=== PATIENT | female | born 1950 | race Caucasian/White ===

== ENCOUNTER → 2017-03-06 | Outpatient (CLI) | payer OTHER ==
[~2017-03-06] MED LIST: AMR2 PO; ASPCH81X PO; ATEN-171 PO; ATOR10TA82 PO; BUPRTAB51 PO; CINN1CAP2 PO; GABA-113 PO; GLC500 PO; LSN5 PO
--- NOTE | 2017-03-07 13:04 | MAMMOGRAPHY REPORT ---
BILATERAL DIGITAL SCREENING MAMMOGRAM WITH CAD: 03/06/2017 CLINICAL HISTORY: Routine screening. Patient has no complaints. TECHNIQUE: Current study was also evaluated with a Computer Aided Detection (CAD) system. Bilatera l CC and MLO views were obtained. COMPARISON: Comparison is made to exams dated: 02/22/2016 mammogram, 02/16/2015 mammogram, 02/10/2014 ma mmogram, 01/28/2013 mammogram, 01/16/2012 mammogram, and 01/10/2011 mammogram - [facility]. BREAST COMPOSITION: There are scattered areas of fibroglandular density in both breasts. FINDINGS: No suspicious masses, calcifications, or areas of architectural distortion are noted in e ither breast. There has been no significant interval change compared to prior exams. IMPRESSION: ACR BI-RADS CATEGORY 1: NEGATIVE There is no mammographic evidence of malignancy. A 1 year screening mammogram is recommended. The p atient will receive written notification of the results. Approximately 10% of breast cancers are not detected with mammography. A negative mammographic repor t should not delay biopsy if a clinically suggestive mass is present. Maria Antonia Martinez M.D. ah/:03/07/2017 07:40:51 Ag Service Manager: Yuko HARTMANN(R)(M), [facility] letter sent: Normal 1/2 BI-RADS Code: ACR BI-RADS Category 1: Negative
== END | disposition home or self-care (01) ==
LOC: C.MAMM 17:15
PROVIDERS: ATTEND Obstetrics & Gynecology
DX: Z12.31 Encounter for screening mammogram for malignant neoplasm of breast (principal)

== ENCOUNTER 2017-04-26 19:23 | Emergency (ER) | payer OTHER ==
[~2017-04-26] VITALS: Ht 157.5 cm; Wt 72.7 kg
[2017-04-26 19:26] VITALS: BP 141/82; PULSE 99; TEMP 36.7; O2SAT 95; Ht 157.5 cm; Wt 72.7 kg
[2017-04-26] MEDS ORDERED: ACETAMINOPHEN 500 MG TAB PO STA (20:03)
--- NOTE | 2017-04-26 20:18 | EMERGENCY ROOM VISIT NOTE ---
ED Visit Note First contact with patient: 19:46 CHIEF COMPLAINT: Left hip pain HISTORY OF PRESENT ILLNESS: This 66-year-old female patient presents to the emergency department complaining of left groin and hip pain which began this morning spontaneously. Patient states pain has increased as the day has gone on. She states pain begins in the left groin and radiates down her left leg over the anterior thigh. Patient states at noon, she took one of her 's Percocet, and states this did not help the discomfort. She states throughout the day she has taken 2 Aleve without relief as well. Patient states her last dose of Aleve was at 4:00 this afternoon. Patient states she is able to walk, however walking increases her discomfort patient states pain is sharp/constant and rates it at 10/10. She states lying on her right side is the only position which helped relieve the pain minimally. Patient denies paresthesias, weakness , urinary incontinence, abdominal pain, back pain, pain radiating down the posterior thigh, recent injury or illness. Patient denies redness, swelling, warmth. REVIEW OF SYSTEMS: A 10 system review of systems was performed with positives and pertinent negatives listed in the history of present illness. All other systems were reviewed and are negative. ALLERGIES: None MEDICATIONS: Atenolol/chlorthalidone, atorvastatin, Wellbutrin, cinnamon, glimepiride, lisinopril, metformin, aspirin, gabapentin, sertraline PMH: Hypertension, hyperlipidemia, depression, diabetes mellitus type 2, diabetic neuropathy SOCIAL HISTORY: Patient lives locally with her family. She denies alcohol, drug , tobacco use. PHYSICAL EXAM: VITALS: Vitals are noted on the nurse's note and reviewed by myself. Vital signs stable. GENERAL: 66-year-old female, in no acute distress, nondiaphoretic, well- developed well-nourished. SKIN: The skin was without rashes, erythema, edema, or bruising. There is no tenting of the skin. Capillary reflex less than 2 seconds. NECK: Supple without nuchal rigidity. No lymphadenopathy. No thyromegaly. Cervical spine is nontender. No JVD. MUSCULOSKELETAL: Hip tenderness on palpation. Range of motion is slightly limited due to pain. No muscle atrophy, erythema, or edema noted. Full range of motion without joint tenderness in all extremities except as noted. Pt. walks with a limp due to hip pain. Strength 5/5 throughout. NEUROVASCULAR: Patient was alert and oriented to person place and time. Normal sensation to light and sharp touch. Deep tendon reflexes 2+ throughout. No focal neurological deficits. Pedal pulses 2+ bilaterally. PRISCILA test [] EMERGENCY DEPARTMENT COURSE: Pt. was seen and evaluated as outlined above. Pt. was given 1000mg Tylenol for pain and noted moderate relief. Xray of the left hip performed, reviewed by myself, Dr. Parker, and radiology, and indicated: DISCUSSION: No fractures or dislocations are visualized. Joint space appears well-preserved for age. There are no erosive or destructive changes. IMPRESSION: 1. No acute fractures 2. No erosive or destructive changes identified I discussed the case with Dr. Parker who evaluated the patient independently. Discussion regarding xray results with patient. Advised patient to manage pain through the weekend and follow-up with her PCP or orthopedics next week. Pt. and family are in agreement with this plan. Pt. was discharged home in good condition. DIAGNOSIS: Left hip pain DIFFERENTIAL DIAGNOSIS: femoral head fracture, pelvic fracture, hip contusion, hip sprain, avascular necrosis, sciatica, malignancy DISCHARGE INSTRUCTIONS & TREATMENT: Rest, stay off of the leg as much as possible until pain subsides. For pain control, you can use the following mysb-egj-awpzenv medicines (if >12 yo): - Extra strength (500mg/tab) Tylenol (acetaminophen) 2 tabs every 4-6 hours as needed. Do not exceed 8 tablets in a 24 hour period. Avoid taking more than 4 grams (4000 mg) of Tylenol per day. This includes any other sources of acetaminophen you may take on a regular basis. - Regular strength (200 mg/tab) Advil (ibuprofen) 2-3 tabs every 4-6 hours as needed. Do not exceed a dose of 3200 mg per day. You may alternate these two medications every 3 hours. Follow-up with your primary care provider or orthopedic surgeon in 2-3 days if no improvement in symptoms. Return to the Emergency Department for increasing pain, any redness or swelling , inability to ambulate, loss of bowel/bladder dysfunction, weakness, numbness or tingling in the extremities, or if you experience discoloration of the leg. Problem List Medical Problems: (1) HTN (hypertension) Status: Chronic Current/Historical Medications Scheduled Aspirin (Aspirin Chewable), 81 MG PO QAM Atenolol/Chlorthalidone (Tenoretic 50 Mg/25 Mg), 1 TAB PO QPM Atorvastatin (Lipitor), 10 MG PO QPM Bupropion (Wellbutrin-Xl), 300 MG PO QPM Cinnamon (Cinnamon), 500 MG PO QAM Gabapentin (Neurontin), 300 MG PO QPM Glimepiride (Glimepiride), 2 MG PO QAM Lisinopril (Lisinopril), 5 MG PO QAM Metformin HCl (Metformin HCl), 500 MG PO BID Allergies Coded Allergies: No Known Allergies (Unverified , 04/02/16) Vital Signs Date Time Temp Pulse Resp B/P (MAP) Pulse Ox O2 Delivery O2 Flow Rate FiO2 04/26/17 19:26 36.7 99 18 141/82 95 Room Air Medications Administered Medications (Trade) Dose Ordered Sig/Albino Route Start Time Stop Time Status Last Admin Dose Admin Acetaminophen (Tylenol Tab) 1,000 mg NOW STAT PO 04/26/17 20:03 04/26/17 20:04 DC 04/26/17 20:33 1,000 MG Departure Information Impression Primary Impression: Left hip pain Dispostion Home / Self-Care Condition GOOD Referrals Cami Mukherjee (PCP) Eugenio Mckenna M.D. Patient Instructions [facility] Additional Instructions Rest, stay off of the leg as much as possible until pain subsides. For pain control, you can use the following otac-ksg-cgtdzri medicines (if >12 yo): - Extra strength (500mg/tab) Tylenol (acetaminophen) 2 tabs every 4-6 hours as needed. Do not exceed 8 tablets in a 24 hour period. Avoid taking more than 4 grams (4000 mg) of Tylenol per day. This includes any other sources of acetaminophen you may take on a regular basis. - Regular strength (200 mg/tab) Advil (ibuprofen) 2-3 tabs every 4-6 hours as needed. Do not exceed a dose of 3200 mg per day. You may alternate these two medications every 3 hours. Follow-up with your primary care provider or orthopedic surgeon in 2-3 days if no improvement in symptoms. Return to the Emergency Department for increasing pain, any redness or swelling , inability to ambulate, loss of bowel/bladder dysfunction, weakness, numbness or tingling in the extremities, or if you experience discoloration of the leg.
--- NOTE | 2017-04-26 20:31 | DIAGNOSTIC IMAGING REPORT ---
LEFT HIP UNILATERAL 2 VIEWS CLINICAL HISTORY: Left hip pain COMPARISON: None. DISCUSSION: No fractures or dislocations are visualized. Joint space appears well-preserved for age. There are no erosive or destructive changes. IMPRESSION: 1. No acute fractures 2. No erosive or destructive changes identified Electronically signed by: Radu Estrada M.D. 04/26/2017 8:29 PM Dictated Date/Time: 04/26/2017 8:29 PM
--- NOTE | 2017-04-26 20:51 | EMERGENCY ROOM VISIT NOTE ---
ED Visit Note First contact with patient: 19:46 Staff note: I have reviewed the Patients chart and have discussed this case with my PA. I generally agree with the ED note and findings.
== END 2017-04-26 21:11 | disposition home or self-care (01) ==
LOC: C.EDB 19:24 → C.EDD 21:11
DX: M25.552 Pain in left hip (principal); I10 Essential (primary) hypertension; E78.5 Hyperlipidemia, unspecified; E11.40 Type 2 diabetes mellitus with diabetic neuropathy, unspecified; F32.9 Major depressive disorder, single episode, unspecified; Z79.82 Long term (current) use of aspirin; Z79.84 Long term (current) use of oral hypoglycemic drugs; Z79.899 Other long term (current) drug therapy

== ENCOUNTER → 2018-02-10 | Day surgery (SDC) | payer OTHER ==
[2018-01-16 10:16] VITALS: Ht 158.8 cm; Wt 72.7 kg
[~2018-02-10] VITALS: Ht 158.8 cm; Wt 72.7 kg
[~2018-02-10] MED LIST changes: +500ML BSS 0.3ML EPI 1:1000PF IRRIG ONE; +ACETAMINOPHEN 325 MG TAB PO PRN; +AMVISC PLUS 0.8ML SYRINGE INT OCU ONE; -ATOR10TA82 PO; +BRIMONIDINE TART 0.2% OP SOLN PER DROP CHARGE ONE; +BSS FLUSH ONE; +COEN100C11 PO; +ENDOCOAT 0.85ML SYRINGE INT OCU ONE; +EpINEphrine INJ 1MG/ML AMP 1 MG/ML AMP ONE; +LACTATED RINGER'S 1000ML 500 ML IV SCH; +LIDOCAINE 4% OP SOLN DROP CHARGE ONE; +LIDOCAINE 4% OP SOLN DROP CHARGE OPL SCH; +LIDOCAINE HCL 1% MPF 2 ML VIAL ONE; +LOVA10TA2 PO; +MIDAZOLAM HCL 1 MG/ML 2ML VIAL ONE; +MIX: 3ML BSS AND 1ML EPI(PF) TOP ONE; +MOXIFLOXACIN OPH SOLN PER DROP CHARGE ONE; +MULT-506 PO; +POVIDONE-IODINE OP SOLN 30 ML BTL ONE; +PROPARACAINE 0.5% OP SOLN PER DROP CHARGE OPL SCH; +TOBRAMYCIN/DEXAMETHASONE OPH OINT PER APPLN CHARGE ONE
[2018-02-10] MEDS: PHENYLEPHRINE HCL 2.5% OP SOLN PER DROP CHARGE OPL SCH ×2 (07:17→07:23)
[2018-02-10] MEDS: TROPICAMIDE 1% OP SOLN PER DROP CHARGE OPL SCH ×2 (07:18→07:24)
[2018-02-10] MEDS: CYCLOPENTOLATE HCL 1% OP SOLN PER DROP CHARGE OPL SCH ×2 (07:19→07:25)
[2018-02-10] MEDS: KETOROLAC 0.5% OP SOLN PER DROP CHARGE OPL SCH ×2 (07:20→07:26)
[2018-02-10] MEDS: MOXIFLOXACIN OPH SOLN PER DROP CHARGE OPL SCH ×2 (07:21→07:27)
--- NOTE | 2018-02-10 07:30 | History & Physical Bridge - SC ---
H&P Re-Evaluation Bridge Note: I have examined the patient, reviewed the History & Physical and in the interval since the performance of the History & Physical I have noted the following changes of clinical significance: No changes noted
[2018-02-10 07:57] VITALS: TEMP 36.5
--- NOTE | 2018-02-10 07:57 | [facility] Operative Report ---
Operative Report Operative Date Feb 10, 2018. Pre-Operative Diagnosis Left eye cataract Post-Operative Diagnosis Same as preop Procedure(s) Performed Left Cataract Phacoemulsification With Intraocular Lens Implant Surgeon Dr. Adair Surfboard Designer Surgeon(s) None Estimated Blood Loss 0 mL Findings cataract left eye Fluids see anesthesia record Specimens None Drains None Anesthesia Type MAC Complication(s) none Disposition no Recovery Room / PACU Indications decreased vision left eye Description of Procedure After informed consent was obtained in the holding area the patient was wheeled back to the operating room where cardiac monitoring leads and oxygen by nasal cannula was administered by Anesthesia. Gentle IV sedation was given, and the patient's left eye was prepped and draped in usual sterile fashion. A wire lid speculum was placed into the left eye and the operating microscope was swung into position. Using 0.12 forceps and a Supersharp blade a paracentesis port was made 2 o'clock hours away from the 11 o'clock position of the patient's left eye. 1% non-preserved Lidocaine was then injected into the anterior chamber for anesthesia. A 2.0 mm keratotome blade was then used to make a shelved clear corneal incision at the 11 o'clock position of the left eye. Amvisc was injected into the anterior chamber and a cystotome and Utrata forceps were used to perform a curvilinear capsulorrhexis. BSS on a hydrodissection cannula was used to hydrodissect the lens nucleus away from the capsular bag. The phacoemulsification handpiece was then used in a stop and chop fashion to remove the lens nucleus. The irrigation and aspiration handpiece was then used to remove the residual cortical material. Amvisc was injected into the capsular bag and anterior chamber and a Bausch [employer] Lomb MX60 18.0 Diopter intraocular lens was injected into the capsular bag. Irrigation and aspiration handpiece was used to remove the residual viscoelastic material. The wounds were hydrated and noted to be watertight. The wire lid speculum was removed from the eye. Vigamox, Brimonidine, and TobraDex ointment were placed on the eye and it was shielded. It should be noted that EndoCoat was used extensively during the case to protect the cornea endothelium. DISPOSITION: The patient tolerated the procedure well and was wheeled to the post anesthesia care unit in stable condition. I attest to the content of the Intraoperative Record and any orders documented therein. Any exceptions are noted below. I attest to the content of the Intraoperative Record and any orders documented therein. Any exceptions are noted below.
--- NOTE | 2018-02-10 07:59 | Discharge Instructions-SurgCtr ---
Discharge Instructions Date of Service Feb 10, 2018. Visit Reason for Visit: Cataract Left Eye Discharge Discharge Diagnosis / Problem: cataract left eye Discharge Goals Goal(s): Improve function Medications Stopped Medications Name(s): jasonamin last dose 02-07-18 Activity Recommendations Activity Limitations: per Instructions/Follow-up section Lifting Limitations: no more than 5 pounds Anesthesia . Post Anesthesia Instructions: If you have had General Anesthesia or IV Sedation: * Do not drive today. * Resume driving when surgeon permits. * Do not make important decisions or sign legal documents today. * Call surgeon for: 1. Temperature elevations greater than 101 degrees F. 2. Uncontrollable pain. 3. Excessive bleeding. 4. Persistent nausea and vomiting. 5. Medication intolerance (nausea, vomiting or rash). * For nausea and vomiting use only clear liquids such as: tea, soda, bouillon until nausea subsides, then gradually increase diet as tolerated. * If you have any concerns or questions, call your surgeon's office. If physician is unavailable and it is an emergency, call 911 or go to the nearest emergency room. . Instructions / Follow-Up Instructions / Follow-Up ACTIVITY RECOMMENDATIONS: * Light activities * You may walk outside, read, watch television. * Mild irritation and blurred vision are common for the first few days, redness around the white part of the eye is common. MEDICATIONS: Resume previous medications unless instructed otherwise by your surgeon. Eye drops (today and tomorrow): Polytrim - one drop in operative eye every 2 hours while awake Prednisolone 1% - one drop in operative eye every 2 hours while awake Bromfenac - one drop in operative eye once daily SPECIAL CARE INSTRUCTIONS: * If any problems or concerns, please call Dr. Adair's office at . * Keep plastic shield taped over eye to sleep at night. * Keep plastic shield taped over eye except to administer eye drops. * Keep plastic shield on until office visit the following day. FOLLOW UP VISIT: Follow-up with Dr. Adair in the [place] office as scheduled. If not already scheduled, please call the office at . Diet Recommendations Home Diet: resume previous diet Procedures Procedures Performed: Left Cataract Phacoemulsification With Intraocular Lens Implant Pending Studies Studies pending at discharge: no Medical Emergencies . Who to Call and When: Medical Emergencies: If at any time you feel your situation is an emergency, please call 911 immediately. . Non-Emergent Contact Non-Emergency issues call your: Hub Inventory Specialist . . "Provider Documentation" section prepared by Martir Adair. .
[2018-02-10 08:22] VITALS: BP 116/70; PULSE 76; O2SAT 98
--- NOTE | 2018-02-10 08:27 | Anesthesia Progress Nt - [facility] ---
Anesthesia Post Op Note Date & Time Feb 10, 2018 at 08:27 Vital Signs Pain Intensity: 0 Vital Signs Past 12 Hours Date Time Temp Pulse Resp B/P (MAP) Pulse Ox O2 Delivery O2 Flow Rate FiO2 02/10/18 08:22 76 16 116/70 (85) 98 Room Air 02/10/18 07:57 36.5 68 18 110/73 (85) 98 Room Air 02/10/18 07:07 36.4 76 18 132/91 (105) 96 Room Air Notes Mental Status: alert / awake / arousable, participated in evaluation Pt Amnestic to Procedure: Yes Nausea / Vomiting: adequately controlled Pain: adequately controlled Airway Patency, RR, SpO2: stable & adequate BP & HR: stable & adequate Hydration State: stable & adequate Anesthetic Complications: no major complications apparent
== END | disposition home or self-care (01) ==
LOC: X.SURG 06:36
PROVIDERS: ATTEND Ophthalmology
DX: H25.12 Age-related nuclear cataract, left eye (principal); E11.9 Type 2 diabetes mellitus without complications; I10 Essential (primary) hypertension; E78.00 Pure hypercholesterolemia, unspecified; Z79.899 Other long term (current) drug therapy; Z79.84 Long term (current) use of oral hypoglycemic drugs; Z79.82 Long term (current) use of aspirin

== ENCOUNTER → 2018-03-07 | Outpatient (CLI) | payer OTHER ==
[~2018-03-07] MED LIST changes: -500ML BSS 0.3ML EPI 1:1000PF IRRIG ONE; -ACETAMINOPHEN 325 MG TAB PO PRN; -AMVISC PLUS 0.8ML SYRINGE INT OCU ONE; -BRIMONIDINE TART 0.2% OP SOLN PER DROP CHARGE ONE; -BSS FLUSH ONE; -ENDOCOAT 0.85ML SYRINGE INT OCU ONE; -EpINEphrine INJ 1MG/ML AMP 1 MG/ML AMP ONE; -LACTATED RINGER'S 1000ML 500 ML IV SCH; -LIDOCAINE 4% OP SOLN DROP CHARGE ONE; -LIDOCAINE 4% OP SOLN DROP CHARGE OPL SCH; -LIDOCAINE HCL 1% MPF 2 ML VIAL ONE; -MIDAZOLAM HCL 1 MG/ML 2ML VIAL ONE; -MIX: 3ML BSS AND 1ML EPI(PF) TOP ONE; -MOXIFLOXACIN OPH SOLN PER DROP CHARGE ONE; -POVIDONE-IODINE OP SOLN 30 ML BTL ONE; -PROPARACAINE 0.5% OP SOLN PER DROP CHARGE OPL SCH; -TOBRAMYCIN/DEXAMETHASONE OPH OINT PER APPLN CHARGE ONE
--- NOTE | 2018-03-10 08:07 | MAMMOGRAPHY REPORT ---
BILATERAL DIGITAL SCREENING MAMMOGRAM TOMOSYNTHESIS WITH CAD: 03/07/2018 CLINICAL HISTORY: Routine screening. Patient has no complaints. TECHNIQUE: Breast tomosynthesis in addition to standard 2D mammography was performed. Current study was also evaluated with a Computer Aided Detection (CAD) system. COMPARISON: Comparison is made to exams dated: 03/06/2017 mammogram, 02/22/2016 mammogram, 02/16/2015 [facility]urie mogram, 02/10/2014 mammogram, 01/28/2013 mammogram, and 01/10/2011 mammogram - [facility]. BREAST COMPOSITION: There are scattered areas of fibroglandular density in both breasts. FINDINGS: No suspicious masses, calcifications, or areas of architectural distortion are noted in ei ther breast. There has been no significant interval change compared to prior exams. IMPRESSION: ACR BI-RADS CATEGORY 1: NEGATIVE There is no mammographic evidence of malignancy. A 1 year screening mammogram is recommended. The pa tient will receive written notification of the results. Approximately 10% of breast cancers are not detected with mammography. A negative mammographic report should not delay biopsy if a clinically suggestive mass is present. Maria Antonia Martinez M.D. ah/:03/07/2018 13:45:12 Reflector Driller And Deburrer: Ruchi HARTMANN(Rock)(M), [facility] letter sent: Normal 1/2 BI-RADS Code: ACR BI-RADS Category 1: Negative
== END | disposition home or self-care (01) ==
LOC: C.MAMM 10:35
PROVIDERS: ATTEND Obstetrics & Gynecology
DX: Z12.31 Encounter for screening mammogram for malignant neoplasm of breast (principal)

== ENCOUNTER → 2018-04-07 | Outpatient (CLI) | payer OTHER ==
--- NOTE | 2018-04-07 12:00 | DIAGNOSTIC IMAGING REPORT ---
ART DOP LOWER EXT BILAT CLINICAL HISTORY: 67 years-old Female presenting with PERIPHERAL VASCULAR DISEASE. TECHNIQUE: Real-time grayscale and color and spectral Doppler ultrasound imaging of the bilateral lower extremities arteries was performed. Measurements calculated based on NASCET criteria. COMPARISON: None. FINDINGS: Right: Common femoral artery: Patent. Peak systolic velocity 90 cm/s. Superficial femoral artery: Patent. Peak systolic velocity 72-75 cm/s. Deep femoral artery: Patent. Peak systolic velocity 68 cm/s. Popliteal artery: Patent. Peak systolic velocity 55 cm/s. Anterior tibial artery: Patent. Peak systolic velocity 81 cm/s. Posterior tibial artery: Patent. Peak systolic velocity 62-69 cm/s. Peroneal artery: Patent. Peak systolic velocity 65 cm/s. Dorsalis pedis: Patent. Peak systolic velocity 45 cm/s. Left: Common femoral artery: Systolic broadening though patent. Peak systolic velocity 38 cm/s. Superficial femoral artery: Systolic broadening though patent. Peak systolic velocity 39-53 cm/s. Deep femoral artery: Systolic broadening with blunted monophasic waveform. Peak systolic velocity 24 cm/s. Popliteal artery: Monophasic waveform. Peak systolic velocity 27 cm/s. Anterior tibial artery: Monophasic waveform. Peak systolic velocity 24 cm/s. Posterior tibial artery: Monophasic waveform. Peak systolic velocity 30 cm/s. Peroneal artery: Monophasic waveform. Peak systolic velocity 33-44 cm/s. Dorsalis pedis: Monophasic waveform with loss of diastolic flow. Peak systolic velocity 19 cm/s. RAKESH Brachial: Right: 116 mmHg, Left: 127 mmHg. Ankle (Posterior tibial): Right: 117 mmHg, Left: 88 mmHg. Ankle (Dorsalis pedis): Right: 131 mmHg, Left: 80 mmHg. Ankle/Brachial Index: Right: 0.92-1.03, Left: 0.63-0.69. Reference ranges: Normal RAKESH 1.0-1.4; 0.9-0.99 borderline; less than 0.9 abnormal. IMPRESSION: 1. Hemodynamically significant stenosis above the level of the left common femoral artery resulting in diffusely blunted flow to the left lower extremity. No hemodynamically significant stenosis in the right lower extremity. 2. Abnormal left lower extremity ankle-brachial index. Normal right lower extremity ankle-brachial index. Electronically signed by: Colby Barillas M.D. 04/07/2018 11:59 AM Dictated Date/Time: 04/07/2018 11:52 AM
== END | disposition home or self-care (01) ==
LOC: C.ULTR 10:05
PROVIDERS: ATTEND Nurse Practitioner Family
DX: I73.9 Peripheral vascular disease, unspecified (principal); Z87.891 Personal history of nicotine dependence

== ENCOUNTER → 2018-06-24 | Day surgery (SDC) | payer OTHER ==
[2018-06-24] VITALS (10 sets, daily range): BP systolic 90–140; BP diastolic 58–78; PULSE 77–89; TEMP 36.6–37.8; O2SAT 95–98; Ht 158.8 cm; Wt 74.0 kg
[~2018-06-24] VITALS: Ht 158.8 cm; Wt 74.0 kg
[~2018-06-24] MED LIST changes: +ASCO500T3 PO; +CEFAZOLIN 1000MG IV PUSH 7.5 ML IV SCH; +CHOL1000 PO; +CYAN10005 PO; +FENTANYL CITRATE INJ 50 MCG/1 ML 2 ML VIAL IV ONE; +FENTANYL CITRATE INJ 50 MCG/1 ML 2 ML VIAL ONE; +HEPARIN SOD (PORCINE) 1000 UNIT/ML 10 ML VIAL IV ONE; +HEPARIN SOD (PORCINE) 1000 UNIT/ML 10 ML VIAL ONE; +IODIXANOL (VISIPAQUE) 270 MG/ML 150ML XX ONE; +LIDOCAINE HCL 1% 20 ML VIAL INJ ONE; +LISI-730 PO; -LSN5 PO; +MIDAZOLAM HCL 1 MG/ML 2ML VIAL IV ONE; +MIDAZOLAM HCL 1 MG/ML 2ML VIAL ONE; +OXYCODONE/ACETAMINOPHEN 5-325 TAB PO PRN; +PATIENT'S HEIGHT AND/OR WEIGHT NEEDED SCH; +SERT50TA PO; +SODIUM CHLORIDE 0.9% 1000ML IV SCH; +TRMCR515 TOP; +premarin cream TOP
--- NOTE | 2018-06-24 06:06 | History and Physical ---
History & Physical Date of Service Jun 24, 2018. History & Physical * Final Report * HISTORY & PHYSICAL Name: [place] [facility] [id number] : 1950 Date of Service: 06/09/2018 June 09, 2018 [facility] [address] [place] [address] Dear Ms. Mukherjee, I had the pleasure of seeing your patient, Veronika Heath, in the vascular surgery clinic today for evaluation of her left leg claudication. As you know, she is able to walk approximately 50 yards before she has to stop related to left leg cramping and pain. She states it is better with rest. She denies any ulcerations or poorly healing wounds of the left leg. She denies pain that is shooting down the legs. Her symptoms are consistent aching and cramping when ambulating more than 50 yards or a ascending a significant incline. As you know, her past medical history is significant for hypertension, hyperlipidemia, and diabetes with neuropathy. Her only past surgery is a partial hysterectomy. ROS unremarkable except for HPI Her current medications are metformin, glimepiride, lisinopril, lovastatin, gabapentin, atenolol, and sertraline. She has a sensitivity to simvastatin, but no other allergies. Her social history is significant for being and retired [employer]. She is a former smoker, approximately 2 packs a day for 20 years; however, she quit 4-1/2 years ago. She does not drink alcohol or take any illicit drugs. On exam, Mrs. Heath is well. Her blood pressure is 138/78 on the left and 144 /78 on the right. Her heart rate is 85 and she is saturating at 98% on room air. Her head is normocephalic and atraumatic. Her neck is supple and without bruits. Her heart rate and rhythm are regular. Her lungs are clear to auscultation bilaterally. Her radial pulses are 2+ bilaterally and femoral pulse is 1+ on the left and 2+ on the right. Her abdomen is obese, soft, nontender, nondistended. Her left dorsalis pedis is 1+ and her right dorsalis pedis is 2+. On review of imaging, she does have a left common iliac artery stenosis with elevated peak systolic velocities in the 500s. We discussed these findings and that she would benefit from an endovascular procedure, either stenting of the left iliac artery or possibly stenting of bilateral iliac arteries. Ms. Heath understands the risks and benefits of the procedure and did wish to proceed with having the procedure done. We will schedule her in the coming weeks.Please don't hesitate to contact us with questions or concerns. saw and evaluated the patient. Discussed with the resident and agree with the resident's findings and plan as documented in the resident's note. Initial H&P Coding Selection Low Moderate High [id number] Diagnosis #[id number] Signature Line Electronic Signature on File CC: AINSLEY Bird [address] [facility] [address] Electronically Reviewed/Signed by: Clarice Marks MD Author Signature Dt/Tm:06/10/2018 11:25 AM Resident Division of Vascular Surgery Electronically Reviewed/Signed by: Castillo Quintero Signature Dt/Tm : 06/10/2018 01:12 PM Bus System Operator Prashanth Barbour [facility] [place], [address] [place] [address] RES /BH Result Type: .HP Date of Service: June 09, 2018 00:00 EDT Authorization Status: Final Subject: History & Physical Author or Import Date: MD Marks Rachael E on June 09, 2018 16:28 EDT Verified By: MD Faizan, Malachi Dorsey on June 10, 2018 13:12 EDT Encounter info: [id number], [facility] [place], 06/09/2018 - 06/09/2018 Contributor system: [id number] Imp: Left iliac artery stenosis Plan: Patient will be admitted for arteriography with possible intervention. I have discussed the risks options and benefits of the procedure with the patient. The patient understands the risks options and benefits and agrees to the procedure.
--- NOTE | 2018-06-24 08:06 | Pre Sedation Assessment ---
Pre Sedation Assessment General Date of Sedation: Jun 24, 2018. Vital Signs Past 12 Hours Date Time Temp Pulse Resp B/P (MAP) Pulse Ox O2 Delivery O2 Flow Rate FiO2 06/24/18 05:55 36.7 88 18 140/76 (97) 95 Room Air Pre-Sedation Airway Assessment Smoking Status: Former Smoker Hx of Sleep Apnea: No Short Thick Neck: No Thyro-mental Distance: > 3 Finger Breadths Oral Cavity: Dentures Mallampati Classification: Class I ASA Classification: Class II NPO Status Date of Last Intake of Fluids: Jun 23, 2018 Time of Last Intake of Fluids: 230 Date of Last Intake of Solids: Jun 23, 2018 Time of Last Intake of Solids: 2300 Procedure Planning Contraindications for Sedation: None Current Medications Reviewed: Yes Notes The planned sedation has been discussed with the patient. Informed Consent was obtained. I have identified the patient, determined the appropriateness of sedation and have assessed the patient immediately prior to the procedure. All medicine(s) and interventions are by my order.
--- NOTE | 2018-06-24 09:13 | Discharge Instructions ---
Discharge Instructions Date of Service Jun 24, 2018. Visit Reason for Visit: Left Common Iliac Artery Stenosis Discharge Discharge Diagnosis / Problem: left common iliac artery stenosis Discharge Goals Goal(s): Therapeutic intervention Activity Recommendations Activity Limitations: per Instructions/Follow-up section Anesthesia . Post Anesthesia Instructions: If you have had General Anesthesia or IV Sedation: * Do not drive today. * Resume driving when surgeon permits. * Do not make important decisions or sign legal documents today. * Call surgeon for: 1. Temperature elevations greater than 101 degrees F. 2. Uncontrollable pain. 3. Excessive bleeding. 4. Persistent nausea and vomiting. 5. Medication intolerance (nausea, vomiting or rash). * For nausea and vomiting use only clear liquids such as: tea, soda, bouillon until nausea subsides, then gradually increase diet as tolerated. * If you have any concerns or questions, call your surgeon's office. If physician is unavailable and it is an emergency, call 911 or go to the nearest emergency room. . Instructions / Follow-Up Instructions / Follow-Up Call [phone] to schedule a follow up appointment if one not already scheduled. SPECIAL CARE INSTRUCTIONS: Medications: * Continue to take your medications as directed. If you have been given a prescription for Plavix, please fill it immediately and take as directed. Incision Care: * Your puncture site may have some bruising and minor swelling for about one week. * You will have a small dressing covering your puncture site. You may remove the dressing after 24 hours and shower. You may let the warm soapy water run over it, but be sure to dry the puncture site well and keep it dry. * DO NOT IMMERSE THE INCISION IN A TUB/POOL/etc. UNTIL HEALED. * Puncture sites should be kept covered with a band-aid until it begins to heal. Restrictions: * Depending on whether you leg or arm was punctured to access the arteries, you will be required to lay flat, hold your arm still, or both, for about 4 hours after the procedure to prevent bleeding. * Limit your activity for the first 48 hours. You may walk and go up and down steps. Avoid excessive bending or movement at the puncture site. Possible Complications: * Excessive Swelling - after blood flow is improved you may notice increased swelling in the lower legs. This is a normal response. This usually depends on the amount of blockages in the leg, how long they have been there prior to your procedure and how much blood flow was restored. Elevating your legs will help to improve this. Please notify our office ([phone] ) if the swelling does not go away after lying in bed overnight. * Infection/Drainage/Bleeding - Drainage or bleeding from the puncture site should be minimal. If you have excessive bleeding or drainage, call our office ([phone]) right away. * Pain - You may experience some mild pain or soreness at your puncture site. If your pain does not improve, please contact our office ([phone]). Call your doctor and seek emergent treatment if you develop: * Temperature above 101 degrees * Any fever or chills * Any redness or purulent drainage from the puncture site * Any new dusky/blue colored toes or feet with coolness or sharp or aching pain. SKIN IRRITATION: * You may experience some redness and/or swelling in the area where radiation was administered. If any skin irritation occurs, please contact your family physician. FOLLOW UP VISIT: Keep any scheduled doctor appointments. Diet Recommendations Recommended Home Diet: resume previous diet Procedures Procedures Performed: Left Lower Extremity Angiogram Ultrasound Localization of Bilateral Femoral Arteries Percutaneous Transluminal Angioplasty/Stent of Left Iliac Common Mechanical Closure of Bilateral Femoral Arteries Moderate Sedation Pending Studies Studies pending at discharge: no Medical Emergencies . Who to Call and When: Medical Emergencies: If at any time you feel your situation is an emergency, please call 911 immediately. . Non-Emergent Contact Non-Emergency issues call your: Surgeon . . "Provider Documentation" section prepared by Malachi Gloria. .
--- NOTE | 2018-06-24 09:17 | [facility] Operative Report ---
Operative Report Operative Date Jun 24, 2018. Pre-Operative Diagnosis Left Iliac Artery Stenosis Post-Operative Diagnosis Left Iliac Artery Stenosis Procedure(s) Performed Left Lower Extremity Angiogram Ultrasound Localization of Bilateral Femoral Arteries Percutaneous Transluminal Angioplasty/Stent of Left Iliac Common Mechanical Closure of Bilateral Femoral Arteries Moderate Sedation Surgeon Faizan [employer] Intern Surgeon(s) Alise Rodgers MD Estimated Blood Loss 10 Findings Left iliac artery stenosis Specimens None Anesthesia Type IV Sedat Cons RN Only Complication(s) none Disposition Recovery Room / PACU Indications This is a 67 year old female who presents with left lower extremity claudication and evidence of left common iliac artery stenosis on arterial duplex. The risks, benefits and alternatives were discussed with the patient and she elected to proceed with the procedure. Description of Procedure The patient was brought to the angio suite and placed in the supine position. Her bilateral groins were prepped and draped in the typical sterile fashion. She was given preoperative antibiotics. Local anesthesia was administered. The right common femoral artery was accessed under ultrasound guidance finding the artery to be patent. A 5 Fr sheath was placed. An 0.035 angled glidewire was advanced into the aorto. A Merit 5 Fr pigtail catheter was then advanced and an aortogram was completed which demonstrated the stenosis in the left iliac artery about 1 cm from the bifurcation. The left common femoral artery was then accessed under ultrasound guidance. The artery was patent on ultrasound. A 7 Fr sheath was placed. She was given 3000 U of IV heparin. A 0.035 angled glidewire was passed easily through the area of stenosis. An Bertrand 6 x 40 mm balloon was advanced to the area of stenosis and inflated for 17 seconds at 6 chantale. This was then advanced and inflated again for 10 sec at 6 chantale. An omnilink 9mm x 29mm stent was then advanced. Aortogram was repeated to assess positioning. The stent was then deployed. A post procedure aortogram was completed which showed good stent placement and improved flow through the left common iliac. The perclose device was used to close the puncture site on the left. The starclose was used to close the puncture site on the right. Pressure was held on both sides and hemostasis was achieved. The patient tolerated the procedure well without complication. She was brought to the recovery room in good condition. She had palpable DP pulses bilaterally post procedure. Dr. Gloria was scrubbed and present for the entire case. I attest to the content of the Intraoperative Record and any orders documented therein. Any exceptions are noted below.
--- NOTE | 2018-06-24 09:20 | [facility] Post Operative Brief Note ---
Immediate Operative Summary Operative Date Jun 24, 2018. Pre-Operative Diagnosis Left Iliac Artery Stenosis Post-Operative Diagnosis Left Iliac Artery Stenosis Procedure(s) Performed Left Lower Extremity Angiogram Ultrasound Localization of Bilateral Femoral Arteries Percutaneous Transluminal Angioplasty/Stent of Left Iliac Common Mechanical Closure of Bilateral Femoral Arteries Moderate Sedation [id number] Surgeon Faizan Supervisory [employer] Officer Surgeon(s) Alise Rodgers MD Estimated Blood Loss 10 Findings Consistent with Post-Op Diagnosis Specimens None Drains None Anesthesia Type IV Sedat Cons RN Only Complication(s) none Disposition Accompanied Pt To Recover: no Disposition:
== END | disposition home or self-care (01) ==
LOC: C.ACU 05:45
PROVIDERS: ATTEND Surgery Vascular Surgery
DX: I73.9 Peripheral vascular disease, unspecified (principal); I10 Essential (primary) hypertension; E78.5 Hyperlipidemia, unspecified; E11.42 Type 2 diabetes mellitus with diabetic polyneuropathy; Z79.84 Long term (current) use of oral hypoglycemic drugs; Z87.891 Personal history of nicotine dependence